=== PATIENT | female | born 1990 | race Caucasian/White ===

== ENCOUNTER 2016-12-07 15:59 | Emergency (ER) | payer OTHER ==
[2016-12-07 16:59] VITALS: BP 110/66; PULSE 90; RESP 18; TEMP 96.8
[2016-12-07] MEDS ORDERED: KETOROLAC 60 MG/2 ML VIAL IM STA (17:10)
[2016-12-07] MEDS ORDERED: ORPHENADRINE 30 MG/ML 2 ML VIAL IM STA (17:10)
[2016-12-07] MEDS ORDERED: ONDANSETRON 4 MG ODT STARTER PACK 2 TAB BTL PO STA (17:14)
--- NOTE | 2016-12-07 17:15 | ED ---
Back Pain HPI - General Chief Complaint: Back Pain/Injury Stated Complaint: Back/Hip/Knee Pain Time Seen by Provider: 12/07/16 17:00 Source: patient, RN notes reviewed Limitations: no limitations - History of Present Illness Initial Comments: Patient is a 26-year-old female with history of fibromyalgia reporting that she is an acute exacerbation of diffuse pain over her upper shoulders, back and knees. She states that this is happened to her before, however at this time her pain is not relieved with her Flexeril. She states that she had no specific injuries to cause this. She reports that she does have episode of vomiting earlier today. She also reports a couple episodes of diarrhea but states that this is normal for her. She denies any abdominal pain or nausea vomiting at this time. She denies any swelling to the joints, peripheral paresthesias, fever, chills, headache, cough, shortness of breath, chest pain. - Related Data Home Medications Medication Instructions Recorded Confirmed clonazePAM [KlonoPIN] 1 mg PO BID PRN 08/16/16 12/07/16 Ascorbic Acid [Vitamin C] 1,000 mg PO DAILY 12/07/16 12/07/16 Calcium Carbonate [Calcium] 600 mg PO DAILY 12/07/16 12/07/16 Cholecalciferol [Vitamin D3] 2,000 unit PO DAILY 12/07/16 12/07/16 Cyclobenzaprine [Flexeril] 10 mg PO TID PRN 12/07/16 12/07/16 Ibuprofen [Motrin] 600 mg PO Q6HR PRN 12/07/16 12/07/16 Seasonale 1 tab PO DAILY 12/07/16 12/07/16 Previous Rx's Medication Instructions Recorded Baclofen 10 mg PO TID #12 tab 12/07/16 Dexamethasone 0.75 mg PO DAILY #12 tab 12/07/16 Allergies Allergy/AdvReac Type Severity Reaction Status Date / Time cefaclor [From [facility]] Allergy Unknown Rash/Hives Verified 12/07/16 17:06 Review of Systems ROS Statement: Those systems with pertinent positive or pertinent negative responses have been documented in the HPI. ROS Other: All systems not noted in ROS Statement are negative. Past Medical History Past Medical History: Fibromyalgia Additional Past Medical History / Comment(s): MITRAL VALVE PROLAPSE, STRESS FX IN HIPS AND SHOULDERS, BURSITIS IRINA KNEES. , STATES WT LOSS AND DIARRHEA. History of Any Multi-Drug Resistant Organisms: None Reported Additional Past Surgical History / Comment(s): EGD, WISDOM TEETH Past Anesthesia/Blood Transfusion Reactions: No Reported Reaction Past Psychological History: Anxiety, Depression, PTSD Smoking Status: Current every day smoker Past Alcohol Use History: Rare Additional Past Alcohol Use History / Comment(s): SMOKES 1/2 PPD, SMOKING FOR 9 YEARS. SMOKES MARIJUANA DAILY . Past Drug Use History: Marijuana - Past Family History Mother Family Medical History: Deep Vein Thrombosis (DVT) General Exam - General Exam Comments Initial Comments: Well appearing 26 year old male, no acute distress. Limitations: no limitations General appearance: alert, in no apparent distress Head exam: Present: atraumatic, normocephalic, normal inspection Eye exam: Present: normal appearance, PERRL, EOMI. Absent: scleral icterus, conjunctival injection, periorbital swelling ENT exam: Present: normal exam, normal oropharynx, mucous membranes moist, TM's normal bilaterally Neck exam: Present: normal inspection, full ROM. Absent: tenderness, meningismus, lymphadenopathy Respiratory exam: Present: normal lung sounds bilaterally. Absent: respiratory distress, wheezes, rales, rhonchi, stridor Cardiovascular Exam: Present: regular rate, normal rhythm, normal heart sounds. Absent: systolic murmur, diastolic murmur, rubs, gallop, clicks GI/Abdominal exam: Present: soft, normal bowel sounds. Absent: distended, tenderness, guarding, rebound, rigid Extremities exam: Present: normal inspection, full ROM, normal capillary refill. Absent: tenderness, pedal edema, joint swelling, calf tenderness Back exam: Present: normal inspection Neurological exam: Present: alert, oriented X3, CN II-XII intact Psychiatric exam: Present: normal affect, normal mood Skin exam: Present: warm, dry, intact, normal color. Absent: rash Course Vital Signs 12/07/16 16:55 Temperature 96.8 F L Pulse Rate 90 Respiratory 18 Rate Blood Pressure 110/66 O2 Sat by Pulse 99 Oximetry Medical Decision Making - Medical Decision Making Patient is a 26 year old female with diffuse back pain, knee pain, and shoulder pain. Patient reports this is an exacerbation of her fibromyalgia. No acute injury and patient was able to ambulate normally. Patient also reports that she vomited once today, but relates that to a viral illness. She reports her roommate had similiar symptoms yesterday. Patient given IM toradol and norflex. PAtient will be discharged with Rx of dexamethasone and baclofen.Patient reports that her pain is relieved with injections. Patient advised to follow up with PCP. Return parameters discussed. Patient understands treatment plan and will comply. Disposition Clinical Impression: Fibromyalgia, Nausea Disposition: HOME SELF-CARE Condition: Good Instructions: Chronic Back Pain (ED) Additional Instructions: Patient advised to follow up with primary care provider. Take anti- inflammatory medications as scribe. Return to the [facility] if any alarming signs or symptoms occur. Prescriptions: Baclofen 10 mg PO TID #12 tab Dexamethasone 0.75 mg PO DAILY #12 tab Referrals: Montana Molina DO [Primary Care Provider] - 1-2 days Time of Disposition: 17:35
== END 2016-12-07 17:35 | disposition home or self-care (01) ==
LOC: EC 15:59
DX: M79.7 Fibromyalgia (principal); R11.2 Nausea with vomiting, unspecified; R19.7 Diarrhea, unspecified; F17.200 Nicotine dependence, unspecified, uncomplicated; Z79.899 Other long term (current) drug therapy; Z88.8 Allergy status to other drugs, medicaments and biological substances
CPT/HCPCS: 99283; 96372 ×2; J2360; J1885; S0119

== ENCOUNTER 2017-01-09 10:17 | Day surgery (SDC) | payer OTHER ==
[2017-01-06 13:13] VITALS: BMI 17.6
[~2017-01-09 10:17] MED LIST: LACTATED RINGERS 1,000 ML IV SCH; LIDOCAINE 1% 20 ML VIAL (10MG/ML) FOR IV START INTRADERMA PRN
[2017-01-09 11:07] VITALS: RESP 16; TEMP 96.9
[2017-01-09] MEDS ORDERED: PROPOFOL 10 MG/ML 20 ML VIAL IV ONE (11:59)
[2017-01-09] MEDS ORDERED: LIDOCAINE 1% INJ 10MG/ML (20 ML MDV) ONE (11:59)
--- NOTE | 2017-01-09 12:40 | P.PCN ---
Date of Procedure: 01/09/17 Procedure(s) Performed: Procedure: Colonoscopy and biopsy. Preoperative diagnosis: History of diarrhea and weight loss. Postoperative diagnosis: Exam of the colon and terminal ileum within normal limits. Preparation HalfLytely prep. Sedation: Was provided by anesthesia. Brief clinical history: The patient is a 26-year-old female who is referred for this evaluation because of history of weight loss that occurred over 2-3 months around 9 months ago. She lost a total of 25 pounds or so bover that period. The patient was having diarrhea at that time as well. Seems like things have improved gradually since that time and she is not having diarrhea or weight loss at this time. This evaluation is to assess for possible inflammatory bowel disease or other etiology. Procedure: With the patient on her left lateral decubitus position and after informed consent and adequate sedation, the perianal area was inspected and it did not show any fissures or fistulas. There were no masses felt on digital rectal examination. The Olympus CFQ 160L video colonoscope was then inserted in the rectum in the usual fashion and advanced to the cecum. I intubated the ileocecal valve and examined the terminal ileum. Terminal ileum and colon appeared healthy with no edema, erythema, friability, ulceration, exudation or spontaneous bleeding. There were no polyps or diverticular disease or other pathology. I obtained biopsies from the terminal ileum and right colon then I retroflexed endoscope in the rectum before the endoscope was withdrawn. The patient tolerated the procedure well. Plan: The patient was reassured. Will await biopsy results. She will follow- up with you as planned and I will be happy to see in the office of her symptoms recur.
[2017-01-09] MEDS ORDERED: LACTATED RINGERS 1,000 ML IV ONE ×2 (13:00)
[2017-01-09 13:37] VITALS: BP 94/64; PULSE 55
== END 2017-01-09 13:52 | disposition home or self-care (01) ==
LOC: ORWHC2ENDO 10:17
DX: R19.7 Diarrhea, unspecified (principal); R63.4 Abnormal weight loss; F17.200 Nicotine dependence, unspecified, uncomplicated; M79.7 Fibromyalgia; Z79.899 Other long term (current) drug therapy; Z88.1 Allergy status to other antibiotic agents
CPT/HCPCS: 81025; 88305; 45380; J2001; J2704